=== PATIENT | female | born 1990 | race African-American/Black ===

== ENCOUNTER 2018-08-14 22:41 | Emergency (ER) | payer MEDICAID ==
[~2018-08-14] VITALS: Ht 162.6 cm; Wt 79.5 kg
[2018-08-15 03:14] VITALS: BP 110/70
== END 2018-08-15 03:16 | disposition home or self-care (01) ==
LOC: ER 22:41
DX: M79.602 Pain in left arm (principal); F91.1 Conduct disorder, childhood-onset type; F12.10 Cannabis abuse, uncomplicated; Z98.890 Other specified postprocedural states
CPT/HCPCS: 99282

== ENCOUNTER 2023-05-30 14:19 | Emergency (ER) | payer MEDICAID, OTHER ==
[~2023-05-30] VITALS: Ht 167.6 cm; Wt 104.0 kg
[2023-05-30 14:46] VITALS: O2SAT 99
[2023-05-30] MEDS ORDERED: IBUPROFEN 600MG TABLET PO STA (15:31)
[2023-05-30] MEDS ORDERED: LIDOCAINE HCL/PF 1% 10 MG/ML 5ML VIAL INFIL ONE (15:45)
[2023-05-30] MEDS ORDERED: NAPR-681 MT (17:25)
[2023-05-30] MEDS ORDERED: IBUPROFEN 600MG TABLET PO NR (17:30)
[2023-05-30 17:58] VITALS: BP 136/84; PULSE 70; RESP 18; TEMP 97.9
== END 2023-05-30 18:00 | disposition home or self-care (01) ==
LOC: ER 14:19
DX: S01.511A Laceration without foreign body of lip, initial encounter (principal); F12.10 Cannabis abuse, uncomplicated; Y04.0XXA Assault by unarmed brawl or fight, initial encounter; Y93.89 Activity, other specified; Y92.89 Other specified places as the place of occurrence of the external cause; Y99.8 Other external cause status
CPT/HCPCS: 12011; 99282; Z7610 ×2